=== PATIENT | male | born 1980 | race Caucasian/White ===

== ENCOUNTER 2017-03-26 19:14 | Emergency (ER) | payer OTHER ==
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
[2017-03-26 19:25] VITALS: BP 121/101; PULSE 103; TEMP 98.2; BMI 28.4
[2017-03-26] MEDS ORDERED: IBUPROFEN 600 MG TABLET (FP) PO ONE ×2 (20:07→20:08)
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
== END 2017-03-26 20:13 | disposition home or self-care (01) ==
LOC: JERFT 19:14
DX: S46.812A Strain of other muscles, fascia and tendons at shoulder and upper arm level, left arm, initial encounter (principal); X50.0XXA Overexertion from strenuous movement or load, initial encounter; Y35.811A Legal intervention involving manhandling, law enforcement official injured, initial encounter; Y93.89 Activity, other specified; Y92.89 Other specified places as the place of occurrence of the external cause; Y99.0 Civilian activity done for income or pay
CPT/HCPCS: 99281-25

== ENCOUNTER 2020-01-06 18:36 | Emergency (ER) | payer OTHER ==
[2020-01-06 18:53] VITALS: BP 152/101; PULSE 95; TEMP 99.4; BMI 29.2
[2020-01-06] MEDS ORDERED: IBUPROFEN 600 MG TABLET (FP) PO ONE ×2 (19:16→19:21)
== END 2020-01-06 19:47 | disposition home or self-care (01) ==
LOC: FER 18:36
DX: S60.221A Contusion of right hand, initial encounter (principal); S80.12XA Contusion of left lower leg, initial encounter
CPT/HCPCS: 73130-TC-RT-FY; 99283-25

== ENCOUNTER 2022-05-20 21:24 | Emergency (ER) | payer OTHER ==
[2022-05-20] MEDS ORDERED: LIDOCAINE PATCH REMOVAL MC SCH (22:00)
[2022-05-20 22:04] VITALS: BP 147/92; PULSE 76; RESP 16; TEMP 98.2; BMI 28.7
[2022-05-20] MEDS ORDERED: IBUPROFEN 600 MG TABLET (FP) PO ONE ×2 (22:59→23:06)
[2022-05-20] MEDS ORDERED: LIDOCAINE 5% TOPICAL PATCH TP ONE (23:39)
[2022-05-20] MEDS ORDERED: METHOCARBAMOL 500 MG TABLET ONE (23:40)
[2022-05-20] MEDS ORDERED: METHOCARBAMOL 500 MG TABLET PO ONE (23:40)
[2022-05-20] MEDS ORDERED: LIDOCAINE 5% TOPICAL PATCH ONE (23:41)
== END 2022-05-20 23:47 | disposition home or self-care (01) ==
LOC: FER 21:24
DX: M62.830 Muscle spasm of back (principal)
CPT/HCPCS: 74176-TC; 81003; 87086; 99284-25

== ENCOUNTER 2023-08-26 04:26 | Day surgery (SDC) | payer BC ==
[2023-08-18 17:21] VITALS: BMI 30.4
[2023-08-26] MEDS ORDERED: BUPIVACAINE HCL/PF 0.25% (2.5MG/ML) 10 ML VIAL ONE (14:39)
[2023-08-26] MEDS ORDERED: PROPOFOL 20 ML ONE (15:25)
[2023-08-26] MEDS ORDERED: LIDOCAINE HCL/PF 2% SDV 5ML VIAL ONE (15:25)
[2023-08-26] MEDS ORDERED: ROCURONIUM BROMIDE 50 MG/5 ML SYRINGE ONE ×2 (15:26→16:01)
[2023-08-26] MEDS: cefOXitin SODIUM 2 GM VIAL (RESTRICTED TO ID) IVPB ONE (15:35)
[2023-08-26] MEDS ORDERED: DEXAMETHASONE SOD PHOSPHATE 4 MG/1 ML VIAL ONE ×2 (16:06)
[2023-08-26] MEDS ORDERED: ONDANSETRON 4 MG/2 ML VIAL ONE ×2 (16:06)
[2023-08-26] MEDS ORDERED: SUGAMMADEX SODIUM 200 MG/2 ML VIAL ONE (16:08)
[2023-08-26] MEDS ORDERED: KETOROLAC TROMETHAMINE 30 MG/1 ML VIAL ONE (16:09)
[2023-08-26] MEDS ORDERED: CEFAZOLIN SODIUM 2 GM in DEXTROSE 5%-WATER 100 ML IVPB ONE (16:30)
[2023-08-26] MEDS: BUPIVACAINE HCL/PF 2.5 MG/ML - 30 ML VIAL IJ ONE (16:34)
[2023-08-26] MEDS ORDERED: ACETAMINOPHEN 325 MG TABLET (FP) PO PRN (17:02)
[2023-08-26] MEDS ORDERED: ONDANSETRON 4 MG/2 ML VIAL IVPUSH PRN (17:02)
[2023-08-26] MEDS ORDERED: LACTATED RINGERS SOLUTION 1,000 ML IV SCH (17:15)
[2023-08-26 17:39] VITALS: TEMP 97.6
[2023-08-26] MEDS: oxyCODONE HCL 5 MG TABLET PO PRN ×2 (18:25→19:21)
[2023-08-26] MEDS ORDERED: oxyCODONE HCL 10 MG SUSTAINED ACTING TABLET ONE (18:29)
[2023-08-26] MEDS ORDERED: oxyCODONE HCL 5 MG TABLET ONE (19:20)
[2023-08-26 19:24] VITALS: BP 128/84; PULSE 82; RESP 20
== END 2023-08-26 19:55 | disposition home or self-care (01) ==
LOC: JASU-SURG 04:26
PROVIDERS: ATTEND Surgery
PROC: 0FT44ZZ Resection of Gallbladder, Percutaneous Endoscopic Approach (ICD-10-PCS; principal; 2023-08-26 16:30)
DX: K81.1 Chronic cholecystitis (principal); K42.9 Umbilical hernia without obstruction or gangrene
CPT/HCPCS: 86850; 86900; 86901; 88302-TC; 88304-TC; 94760